=== PATIENT | female | born 1990 | race Caucasian/White ===

== ENCOUNTER → 2016-05-12 | Outpatient (CLI) | payer OTHER ==
[~2016-05-12] MED LIST: CALC-51; FERR325T5 PO
[2016-05-12 16:49] LABS: URINE APPEARANCE CLEAR (CLEAR); URINE BILIRUBIN NEG (NEG); URINE COLOR YELLOW; URINE NITRITE NEG (NEG); URINE PH 7.5 (4.5-7.5); URINE SPECIFIC GRAVITY 1.019 (1.000-1.030); UROBILINOGEN NEG (NEG)
[2016-05-12 16:55] LABS: MANUAL MICROSCOPIC REQUIRED? NO; REVIEW REQ? NO
== END | disposition home or self-care (01) ==
LOC: C.LABSPEC 15:58
PROVIDERS: ATTEND Obstetrics & Gynecology
DX: Z34.90 Encounter for supervision of normal pregnancy, unspecified, unspecified trimester (principal)

== ENCOUNTER → 2016-05-22 | Outpatient (CLI) | payer OTHER ==
[2016-05-22 18:03] LABS: BASO % 0.1 %; BASO ABS # 0.01 K/uL (0-0.2); COMPLETE YES; EOS % 0.6 %; IG% 0.3 %; LYMPH % 17.9 %; LYMPH ABS # 1.42 K/uL (1.2-3.4); MEAN CELL VOLUME 78.7 fL (80-100); MEAN CORPUSCULAR HEMOGLOBIN 26.2 pg (25-34); MEAN CORPUSCULAR HGB CONC 33.2 g/dl (32-36); MONO % 4.9 %; NEUT % 76.2 %; PLATELET COUNT 161 K/uL (130-400); WHITE BLOOD COUNT 7.92 K/uL (4.8-10.8)
[2016-05-27 02:27] LABS: CHLAMYDIA TRACH RNA*** NOT DETECTED (NOT DETECTED); GC (NEIS GONORRHOEAE)RNA** NOT DETECTED (NOT DETECTED)
== END | disposition home or self-care (01) ==
LOC: C.LAB1850 15:55
PROVIDERS: ATTEND Obstetrics & Gynecology
DX: Z34.90 Encounter for supervision of normal pregnancy, unspecified, unspecified trimester (principal); E55.9 Vitamin D deficiency, unspecified

== ENCOUNTER → 2016-05-22 | Outpatient (CLI) | payer OTHER | END | disposition home or self-care (01) | LOC: C.PAPS 09:03 | PROVIDERS: ATTEND Obstetrics & Gynecology | DX: Z34.90 Encounter for supervision of normal pregnancy, unspecified, unspecified trimester (principal); E55.9 Vitamin D deficiency, unspecified ==

== ENCOUNTER → 2016-07-17 | Outpatient (CLI) | payer OTHER ==
[2016-07-17 15:31] LABS: GTGD 50 Grams
== END | disposition home or self-care (01) ==
LOC: C.LAB1850 09:48
PROVIDERS: ATTEND Obstetrics & Gynecology
DX: Z34.82 Encounter for supervision of other normal pregnancy, second trimester (principal)

== ENCOUNTER → 2016-09-11 | Outpatient (CLI) | payer OTHER | END | disposition home or self-care (01) | LOC: C.LABSPEC 17:47 | PROVIDERS: ATTEND Obstetrics & Gynecology | DX: N89.8 Other specified noninflammatory disorders of vagina (principal) ==

== ENCOUNTER → 2016-10-08 | Outpatient (CLI) | payer OTHER ==
[2016-10-08 16:41] LABS: HEMATOCRIT 36.8 % (37-47)
[2016-10-08 17:26] LABS: URINE APPEARANCE CLEAR (CLEAR); URINE BILIRUBIN NEG (NEG); URINE COLOR YELLOW; URINE NITRITE NEG (NEG); URINE PH 6.5 (4.5-7.5); URINE SPECIFIC GRAVITY 1.021 (1.000-1.030); UROBILINOGEN NEG (NEG)
[2016-10-08 17:29] LABS: MANUAL MICROSCOPIC REQUIRED? NO; REVIEW REQ? NO
[2016-10-08 18:54] LABS: GTGD 50 Grams
== END | disposition home or self-care (01) ==
LOC: C.LAB1850 14:49
PROVIDERS: ATTEND Obstetrics & Gynecology
DX: Z34.83 Encounter for supervision of other normal pregnancy, third trimester (principal)

== ENCOUNTER → 2016-11-28 | Outpatient (CLI) | payer OTHER | END | disposition home or self-care (01) | LOC: C.LABSPEC 17:47 | PROVIDERS: ATTEND Obstetrics & Gynecology | DX: N89.8 Other specified noninflammatory disorders of vagina (principal) ==

== ENCOUNTER 2016-12-22 05:25 | Inpatient (IN) | payer OTHER ==
[~2016-12-22] VITALS: Ht 165.1 cm; Wt 83.9 kg
[2016-12-22] MEDS ORDERED: OXYTOCIN INJ 10 UNITS/ML VIAL ONE ×2 (05:36)
[2016-12-22] MEDS ORDERED: OXYTOCIN 30 UNITS/500ML NSS IV ONE (05:54)
[2016-12-22] MEDS ORDERED: MEPERIDINE HCL 25 MG/ML CARP ONE (05:56)
[2016-12-22] MEDS ORDERED: LACTATED RINGER'S 1000ML 1,000 ML IV PRN (06:21)
[2016-12-22] MEDS ORDERED: LACTATED RINGER'S 1000ML 1,000 ML IV SCH (06:21)
[2016-12-22] MEDS ORDERED: BENZOCAINE 20% AER SPR 82.5 GM CAN EXT PRN (06:30)
[2016-12-22] MEDS ORDERED: OXYTOCIN 30 UNITS/500ML NSS IV PRN (06:30)
[2016-12-22] MEDS ORDERED: ACETAMINOPHEN/CODEINE 300/30MG TAB PO PRN ×2 (06:30)
[2016-12-22] MEDS ORDERED: LANOLIN OINT EXT PRN ×2 (06:30)
[2016-12-22] MEDS ORDERED: ACETAMINOPHEN 325 MG TAB PO PRN (06:30)
[2016-12-22] MEDS ORDERED: SUPERCREAM 0.870 % 15GM JAR EXT PRN (06:30)
[2016-12-22 07:10] VITALS: Ht 165.1 cm; Wt 83.9 kg
[2016-12-22 07:31] LABS: HEMATOCRIT 35.3 % (37-47); MEAN CELL VOLUME 79.7 fL (80-100); MEAN CORPUSCULAR HEMOGLOBIN 26.4 pg (25-34); MEAN CORPUSCULAR HGB CONC 33.1 g/dl (32-36); PLATELET COUNT 89 K/uL (130-400); RED BLOOD COUNT 4.43 M/uL (4.2-5.4); WHITE BLOOD COUNT 10.75 K/uL (4.8-10.8)
[2016-12-22] MEDS: IBUPROFEN 600 MG TAB PO PRN ×3 (07:33→20:11)
[2016-12-22 07:34] LABS: PLT ESTIMATE DECREASED
[2016-12-22] MEDS: FERROUS SULFATE 325 MG TAB PO SCH (08:16)
[2016-12-22] MEDS: PRENATAL VITAMIN TAB PO SCH (08:16)
[2016-12-22] MEDS: DOCUSATE SODIUM 100 MG CAP PO SCH ×2 (08:16→20:10)
--- NOTE | 2016-12-22 08:48 | DELIVERY SUMMARY ---
DATE OF OPERATION: 12/22/2016 The patient is a 26-mary-old 2, para 1-0-0-1 white female, EDC of 12/23/2016, who presents in active labor. Contraction started approximately at 0130 and she arrived fully dilated with a bulging forebag in labor and delivery. She pushed effectively over a median episiotomy, which was performed while she was pushing. 1% lidocaine was used to anesthetize the area before creating the median episiotomy. After delivery of the head, it was noted, there was a double tight nuchal cord. This was clamped and cut individually prior to delivering the rest of the infant. Mouth and nasopharynx were suctioned on the perineum. The rest of the infant delivered easily and was placed on the mother's abdomen for further attention. There was spontaneous crying and the infant was moving all four limbsl after drying and stimulation. The placenta was expressed intact with a 3-vessel cord after getting a cord blood sample. The median episiotomy was repaired with 3-0 chromic in the usual fashion. Estimated blood loss was 300 mL. Mother and the infant were doing well after delivery. I attest to the content of the Intraoperative Record and any orders documented therein. Any exceptions are noted below. MTDD
[2016-12-22 09:30] VITALS: BP 116/74; PULSE 71; TEMP 36.8; O2SAT 98
[2016-12-22 11:40] VITALS: BP 109/82; PULSE 76; TEMP 36.8; O2SAT 98
[2016-12-22 15:00] VITALS: BP 116/73; PULSE 78; TEMP 36.6; O2SAT 97
[2016-12-22 19:30] VITALS: BP 121/74; PULSE 78; TEMP 36.5; O2SAT 99
[2016-12-22 23:25] VITALS: BP 111/67; PULSE 65; TEMP 36.7; O2SAT 99
[2016-12-23] MEDS: IBUPROFEN 600 MG TAB PO PRN ×4 (01:17→19:48)
[2016-12-23 03:40] VITALS: BP 113/72; PULSE 66; TEMP 36.4; O2SAT 98
[2016-12-23 07:09] LABS: HEMATOCRIT 29.8 % (37-47)
--- NOTE | 2016-12-23 07:11 | Progress Note ---
Subjective Dec 23, 2016. Subjective conversation w/ patient, physical exam, chart review Ambulation: ambulating normally Voiding: no voiding problems Passing Gas: Yes Diet Tolerance: Regular Diet Lochia: Moderate Feeding Type: Breast Feeding Pain: controlled Comment: pt c/o hemorrhoids Review of Systems Respiratory: No shortness of breath Cardiac: No chest pain Abdomen: No nausea, No vomiting Female : No dysuria Objective Vital Signs Date Time Temp Pulse Resp B/P (MAP) Pulse Ox O2 Delivery O2 Flow Rate FiO2 12/23/16 03:40 36.4 66 16 113/72 (86) 98 Room Air 12/22/16 23:25 99 Room Air 12/22/16 23:25 36.7 65 18 111/67 (82) 99 Room Air 12/22/16 19:30 36.5 78 18 121/74 (90) 99 Room Air 12/22/16 16:00 Room Air 12/22/16 15:00 36.6 78 16 116/73 (87) 97 Room Air 12/22/16 11:40 36.8 76 18 109/82 (91) 98 Room Air 12/22/16 09:30 Room Air 12/22/16 09:30 36.8 71 18 116/74 (88) 98 Room Air Physical Exam General Appearance: WELL-APPEARING, WD/WN, NO APPARENT DISTRESS Respiratory/Chest: lungs clear, normal breath sounds, no respiratory distress Cardiovascular: regular rate, rhythm, no gallop Abdomen: normal bowel sounds, soft Fundus: Firm, Non-Tender, Relation to Umbilicus (1 below U) Extremities: no calf tenderness Laboratory Results Last 24 Hours Test 12/23/16 06:54 Assessment and Plan Post- Day#: 1 Continue Routine Care: - Vital Signs reviewed and WNL. - Hgb 9.9. (on admission was 11.7.) - Blood Type: AB+, GBS + , Rubella Immune. No intrapartum antibiotics given due to fast delivery after arrival. - Pt is doing well clinically. Complains of hemmorrhoids, says cream is helping. - Monitor and Control pain with Motrin PRN, resume regular diet, Monitor Lochia. - Encourage breast feeding. - Continue routine post care. ANDREINA SCOTT PGY1 FM RESIDENT Resident Physician Supervision Note: I interviewed and examined the patient. Discussed with Dr. scott and agree with findings and plan as documented in the note. Any exceptions or clarifications are listed here: [None] Documented By: Juan Ogden Resident Tracking Resident Involvement: Resident Care Provided Care Provided: OB Delivery
--- NOTE | 2016-12-23 07:12 | Discharge Instructions ---
Discharge Instructions Date of Service Dec 23, 2016. Admission Reason for Admission: LABOR Discharge Discharge Diagnosis / Problem: DELIVERY VAGINAL Discharge Goals Goal(s): Routine recovery after delivery Medications Continue Dispensed Medications: supercream, dermaplast, tucks, lansinoh Activity Recommendations Activity Limitations: per Instructions/Follow-up section . Instructions / Follow-Up Instructions / Follow-Up ACTIVITY RECOMMENDATIONS: * Gradual return to full activity over the next 2-3 weeks. * No lifting - nothing heavier than baby over the next 2-3 weeks. * Do not engage in vigorous exercise, sexual activity or sports until cleared by your physician. * Do not drive or operate any motorized equipment until cleared by your physician. * You may shower/bathe daily. MEDICATIONS: For discomfort or pain, you may use Acetaminophen (Tylenol), Ibuprofen (Advil), or Naproxen (Aleve) following the package directions. For constipation you may use Colace following the package directions. BREAST CARE: If you are not breast feeding: * Wear a supportive bra 24 hours a day for one to two weeks. * Avoid stimulating your breasts and nipples as much as possible during the first few weeks after delivery. * When taking a shower, have the warm water hit your back, not breasts. * When your breasts feel full, apply ice packs. Usually three to four times a day helps ease the discomfort. * Take a mild pain medication (Tylenol / Motrin) when you are uncomfortable. If breast feeding: * Use breast milk to lubricate nipples. Lansinoh cream may be used for sore nipples. You do not need to remove cream prior to breast feeding. If using a different brand of cream, check the label for directions regarding removal of cream prior to nursing. * Wear a supportive bra. * If having problems with breasts or breast feeding, call a life consultant or your health care provider. EPISIOTOMY CARE: After delivery, if you have an episiotomy (stitches), the following steps will ease discomfort and aid healing. * For the first 24 hours after delivery, place ice packs next to your episiotomy to help reduce swelling. * After the first 24 hour-period, sitz baths, either portable or in the tub, are suggested. A shower with a shower arm sprayed over the episiotomy may be comforting. * Adelita care should be done after each voiding and bowel movement. Squirt warm water from a plastic bottle over the perineum (region of the body between the anus and urinary opening) and pat dry. * Use Dermoplast to ease discomfort. Shake container. [place] directly over the episiotomy. Place a Tucks on a clean sanitary pad next to your episiotomy. SPECIAL CARE INSTRUCTIONS: When you are discharged from the hospital, it is important for you to follow the instructions listed below: * During the first week at home, you should be able to care for yourself and your baby. In addition, the usual light household activities are encouraged. * Limit your activities to the way you feel. Do not try to clean the house or move furniture. Be sensible. * If you actively engage in sports and have done so up until the time of your delivery, you may resume these activities as soon as you feel able. This may take up to one month or even longer. Use good judgment. * Continue to take your vitamins for at least six weeks after the of your baby. * Your diet need not be limited unless you were on a special diet before your delivery. Breast-feeding mothers need around 2500 calories per day and at least 64-80 ounces of fluid per day (8 to 10 glasses). * You should eat foods from the four major food groups. Crash diets or fad diets are to be avoided. Eating lean meats, fresh fruits and vegetables, low-fat dairy products, high fiber foods and a regular exercise program, will help you get back to your pre- weight without putting your health at risk. * Constipation is sometimes a problem after delivery. Take a mild laxative as needed. If breast feeding, Milk of Magnesia is acceptable to use. You may use a suppository or Fleets enema if no episiotomy. * A daily shower or tub bath is suggested. Be sure to thoroughly and gently dry the perineum. * A bloody vaginal discharge will usually continue until around four weeks post . A small amount of bleeding may continue for as long as six weeks. Vaginal discharge changes from the bright red bleeding after delivery to pink then brownish and finally yellowish-pink before becoming white and disappearing. * Bleeding may increase with activity. Your first period may come in 4-8 weeks. If you are breast feeding, your period may be delayed even longer. * Rillito (sex) can begin whenever both you and your partner feel comfortable and do not have any form of genital infection. It is recommended that you wait at least six weeks for internal and external healing to occur. If you have questions, please talk to your health care practitioner. A condom should be used to prevent infection and . * Foreplay, gentle intercourse and lubrication is very important the first several times to prevent pain. A water-based lubricant such as K-Y jelly or Astroglide may be used. * If you have RH negative blood and your baby is RH positive, you will receive RHOGAM by injection prior to discharge. The nurse will give you a card to keep with you that has the date and place that you received RHOGAM after delivery. * During your care, you had a Rubella screen done to check for the presence of rubella antibodies in your blood. If your test was negative, you will receive a Rubella vaccine prior to discharge. This vaccine may cause a fever, soreness at the injection site and flu-like symptoms. If these symptoms persist, notify your health care practitioner. is not advised for one month after a Rubella vaccine. * Verbalizes understanding of car seat law as reviewed with patient nursing. * Car Seat hand-out given and reviewed with patient by nursing. * Shaken baby information reviewed with patient by nursing. Call you doctor if: * Heavy bleeding (saturating several pads an hour) or passing clots the size of your fist. * A fever >101 degrees F (38.3 degrees C) on two occasions four hours apart and /or chills. * Unusual pain in the pelvic or vaginal areas. * "Baby Blues" lasting longer than two weeks. If you have any questions or concerns, call your health care practitioner at . FOLLOW UP VISIT: * Please call the office at to schedule a 6 week examination. It is important you keep this appointment. It is important for you to make arrangements for either yearly or twice yearly check-ups thereafter. Current Hospital Diet Patient's current hospital diet: Regular OB Diet Discharge Diet Recommended Diet: Regular Diet Pending Studies Studies pending at discharge: no Medical Emergencies . Who to Call and When: Medical Emergencies: If at any time you feel your situation is an emergency, please call [phone] immediately. . Non-Emergent Contact Non-Emergency issues call your: Primary Care Provider . . "Provider Documentation" section prepared by Luma Valdez. . VTE Core Measure Inpt VTE Proph given/why not?: Treatment not indicated
[2016-12-23 07:20] VITALS: BP 108/68; PULSE 66; TEMP 36.6; O2SAT 99
[2016-12-23] MEDS: FERROUS SULFATE 325 MG TAB PO SCH (08:22)
[2016-12-23] MEDS: DOCUSATE SODIUM 100 MG CAP PO SCH ×2 (08:22→19:49)
[2016-12-23] MEDS: PRENATAL VITAMIN TAB PO SCH (08:22)
[2016-12-23 15:30] VITALS: BP 122/64; PULSE 70; TEMP 37; O2SAT 99
[2016-12-23] MEDS ORDERED: BISACODYL 5 MG TABEC PO SCH (20:00)
[2016-12-23 23:30] VITALS: BP 116/64; PULSE 65; TEMP 36.6
[2016-12-24] MEDS: IBUPROFEN 600 MG TAB PO PRN ×2 (06:51→13:05)
--- NOTE | 2016-12-24 07:12 | Progress Note ---
Subjective Dec 24, 2016. Subjective conversation w/ patient, physical exam, chart review, lab review Ambulation: ambulating normally Voiding: no voiding problems Passing Gas: Yes Diet Tolerance: Regular Diet Lochia: Moderate Feeding Type: Breast Feeding Pain: controlled Comment: c/o shoulder pain associated with eating. Sharp, lasts for seconds. Not associated with exertion, denies palpitations or shortness of breath or dizziness. Review of Systems Respiratory: No shortness of breath Cardiac: No chest pain Abdomen: No nausea, No vomiting Female : No dysuria Objective Vital Signs Date Time Temp Pulse Resp B/P (MAP) Pulse Ox O2 Delivery O2 Flow Rate FiO2 12/23/16 23:30 36.6 65 18 116/64 (81) 12/23/16 23:30 Room Air 12/23/16 15:30 37.0 70 16 122/64 (83) 99 Room Air 12/23/16 15:30 99 Room Air 12/23/16 07:20 99 Room Air 12/23/16 07:20 36.6 66 16 108/68 (81) 99 Room Air Physical Exam General Appearance: WELL-APPEARING, WD/WN, NO APPARENT DISTRESS Respiratory/Chest: chest non-tender, lungs clear, normal breath sounds, no respiratory distress, no accessory muscle use Cardiovascular: regular rate, rhythm, no gallop Abdomen: normal bowel sounds, soft Fundus: Firm, Non-Tender, Relation to Umbilicus (2 below U) Extremities: no calf tenderness Assessment and Plan Post- Day#: 2 Continue Routine Care: - Vital Signs reviewed and WNL. - Blood Type: AB+, GBS + , Rubella Immune. No intrapartum antibiotics given due to fast delivery after arrival. - Pt is doing well clinically. Hemmorrhoids, improving. - Monitor and Control pain with Motrin PRN, resume regular diet, Monitor Lochia. - Encourage breast feeding. - Discussed shoulder pain, likely referred pain due to gas and constipation. Stable. Pt counselled on discharge instructions. ANDREINA VALDEZ PGY1 FM RESIDENT Resident Physician Supervision Note: I was present with Dr. Valdez during the history and exam. I discussed the case with the resident and agree with the findings and plan as documented in the note. Any exceptions or clarifications are listed here: Patient doing well. Will plan discharge home. Having nipple pain and will have review latch with her. She has occasional shoulder pain after eating on left. ? hiatal hernia with diaphragmatic irritation. rec she review with pcp. routine d/ c instructions reviewed, f/u 6 wks pp check. Documented By: Trudy Jack Resident Tracking Resident Involvement: Resident Care Provided Care Provided: OB Delivery
[2016-12-24 07:30] VITALS: BP 101/64; PULSE 67; TEMP 36.5; O2SAT 99
[2016-12-24] MEDS: PRENATAL VITAMIN TAB PO SCH (08:13)
[2016-12-24] MEDS: FERROUS SULFATE 325 MG TAB PO SCH (08:13)
[2016-12-24] MEDS: DOCUSATE SODIUM 100 MG CAP PO SCH (08:13)
[2016-12-24] MEDS ORDERED: INFLUENZA VIRUS QUAD VACCINE 0.5 ML SYR IM. ONE (10:30)
[2016-12-24] MEDS ORDERED: INFLUENZA ADMINISTRATION CHARGE ONE (10:30)
[2016-12-24 15:03] VITALS: BP_DIAS 64; PULSE 67; TEMP 36.5
== END 2016-12-24 14:50 | disposition home or self-care (01) | DRG 775 ==
LOC: C.LD 05:25 → C.OPB 05:25 → C.LD 05:30 → C.OBG 09:27 → EDSTATUS 12-23 05:24
PROVIDERS: ADMIT Obstetrics & Gynecology; ATTEND Obstetrics & Gynecology
PROC: 10E0XZZ Delivery of Products of Conception, External Approach (ICD-10-PCS; principal; 2016-12-22)
PROC: 0W8NXZZ Division of Female Perineum, External Approach (ICD-10-PCS; principal; 2016-12-22)
DX: O99.824 Streptococcus B carrier state complicating childbirth (principal); O69.1XX0 Labor and delivery complicated by cord around neck, with compression, not applicable or unspecified; Z37.0 Single live birth; Z3A.39 39 weeks gestation of pregnancy; O99.63 Diseases of the digestive system complicating the puerperium; K44.9 Diaphragmatic hernia without obstruction or gangrene

== ENCOUNTER → 2017-03-02 | Outpatient (CLI) | payer OTHER ==
[2017-03-02 10:12] LABS: PREG INTERNAL NEGATIVE QC NEG CLEAR BACKGROUND; PREG INTERNAL POSITIVE QC POS CONTROL LINE
== END | disposition home or self-care (01) ==
LOC: C.LAB1850 09:32
PROVIDERS: ATTEND Physician Assistant
DX: Z30.430 Encounter for insertion of intrauterine contraceptive device (principal); E55.9 Vitamin D deficiency, unspecified; Z30.9 Encounter for contraceptive management, unspecified